=== PATIENT | female | born 1995 | race Caucasian/White ===

== ENCOUNTER 2017-10-23 18:53 | Emergency (ER) | payer OTHER ==
[2017-10-23] MEDS ORDERED: Adacel (T-DAP) 0.5 ML VIAL ONE (19:27)
--- NOTE | 2017-10-23 20:45 | RAD ---
RIGHT FOOT THREE VIEWS: 10/23/17 HISTORY: Trauma to foot. There is a fracture involving the little toe. This appears to involve the base of the distal phalanx although on the AP projection there is some slight irregularity to the distal aspect of the middle ph alanx. IMPRESSION: Fracture at the distal interphalangeal joint of the little toe. POS: [facility]
== END 2017-10-23 19:45 | disposition home or self-care (01) ==
LOC: SCSER 18:53
DX: S92.531A Displaced fracture of distal phalanx of right lesser toe(s), initial encounter for closed fracture (principal); J45.909 Unspecified asthma, uncomplicated; W55.19XA Other contact with horse, initial encounter
CPT/HCPCS: 90471; 90715